=== PATIENT | male | born 1930 | race Caucasian/White ===

== ENCOUNTER 2017-04-27 12:12 | Emergency (ER) | payer MEDICARE, OTHER ==
[~2017-04-27] VITALS: Ht 175.3 cm; Wt 75.0 kg
[2017-04-27 12:20] VITALS: BP 108/68; PULSE 68; RESP 16; TEMP 98.6; O2SAT 97
[2017-04-27 12:40] VITALS: BP 161/75; PULSE 87; RESP 15; O2SAT 99
[2017-04-27] MEDS ORDERED: SODIUM CHLORIDE 0.9% FLUSH 10 ML FLUSH IVF PRN (13:00)
--- NOTE | 2017-04-27 13:18 | RADRPT ---
EXAM DATE/TIME: 04/27/2017 13:09 [facility] COMPARISON: No previous studies available for comparison. INDICATIONS : Possible fall. Found on the ground. RADIATION DOSE: 37.94 CTDIvol (mGy) MEDICAL HISTORY : Dementia. SURGICAL HISTORY : None. ENCOUNTER: Initial ACUITY: 1 day PAIN SCALE: Non-responsive LOCATION: cranial TECHNIQUE: Multiple contiguous axial images were obtained of the head. Using automated exposure control and adj ustment of the mA and/or kV according to patient size, radiation dose was kept as low as reasonably a chievable to obtain optimal diagnostic quality images. DICOM format image data is available electro nically for review and comparison. FINDINGS: CEREBRUM: The ventricles are normal for age. No evidence of midline shift, mass lesion, hemorrhage or acute in farction. No extra-axial fluid collections are seen. POSTERIOR FOSSA: The cerebellum and brainstem are intact. The 4th ventricle is midline. The cerebellopontine angle i s unremarkable. EXTRACRANIAL: The visualized portion of the orbits is intact. SKULL: The calvaria is intact. No evidence of skull fracture. There is soft tissue swelling over the high r ight parietal and occipital bones. CONCLUSION: Soft tissue swelling over the right parietal and occipital bone with no evidence of h emorrhage or mass effect. Mike Turpin MD on April 27, 2017 at 13:14 Board Certified Radiologist. This report was verified electronically.
--- NOTE | 2017-04-27 13:42 | RADRPT ---
EXAM DATE/TIME: 04/27/2017 13:09 [facility] COMPARISON: No previous studies available for comparison. INDICATIONS : Possible fall. Found on the ground. RADIATION DOSE: 20.84 CTDIvol (mGy) MEDICAL HISTORY : Dementia. SURGICAL HISTORY : None. ENCOUNTER: Initial ACUITY: 1 day PAIN SCALE: Non-responsive LOCATION: neck TECHNIQUE: Volumetric scanning of the cervical spine was performed. Multiplanar reconstructions i n the sagittal, coronal and oblique axial planes were performed. Using automated exposure control a nd adjustment of the mA and/or kV according to patient size, radiation dose was kept as low as reason ably achievable to obtain optimal diagnostic quality images. DICOM format image data is available e lectronically for review and comparison. FINDINGS: The sagittal reconstructions demonstrate normal alignment and normal prevertebral soft tissues. The d ens is intact and there is a normal atlantoaxial relationship. Degenerative disc changes are present at the C3-4, C4-5, C5-6 and C6-7 levels with disc space narrowing and hypertrophic change. Degenerati ve changes are noted involving the right atlantal axial joint. There is joint space loss, sclerosis a nd spurring. There is mild osteopenia. The axial images demonstrate that the vertebral bodies and posterior elements are intact. The soft ti ssues are within normal limits. There is no evidence of acute fracture or malalignment. Hypertrophic degenerative changes noted involving the facet joints. There are disc osteophyte complexes at the C4- 5, C5-6 and C6-7 levels with mass effect on the anterior thecal sac. CONCLUSION: Negative trauma CT. Mike Turpin MD on April 27, 2017 at 13:36 Board Certified Radiologist. This report was verified electronically.
[2017-04-27 13:49] LABS: BASOPHIL % 0.1 % (0.0-2.0); HEMATOCRIT 40.1 % (39.0-51.0); HEMOGLOBIN 13.8 GM/DL (13.0-17.0); LYMPH % 5.9 % (9.0-44.0); LYMPHOCYTE # 1.3 TH/MM3 (1.0-4.8); MEAN CELL VOLUME 86.3 FL (80.0-100.0); MEAN CORPUSCULAR HEMOGLOBIN 29.7 PG (27.0-34.0); MEAN CORPUSCULAR HGB CONC 34.5 % (32.0-36.0); MEAN PLATELET VOLUME 7.6 FL (7.0-11.0); MONO % 11.4 % (0.0-8.0); MONOCYTE # 2.5 TH/MM3 (0-0.9); NEUT % 82.6 % (16.0-70.0); PLATELET COUNT 266 TH/MM3 (150-450); RED BLOOD COUNT 4.65 MIL/MM3 (4.50-5.90); RED CELL DISTRIBUTION WIDTH 14.7 % (11.6-17.2); WHITE BLOOD COUNT 21.8 TH/MM3 (4.0-11.0)
[2017-04-27 13:56] LABS: BILIRUBIN, URINE NEG (NEG); BLOOD, URINE LARGE (NEG); GLUCOSE,URINE NEG (NEG); KETONE, URINE NEG (NEG); NITRITE,URINE NEG (NEG); URINE COLOR YELLOW (YELLW/STRAW); URINE LEUKOCYTE ESTERASE LARGE (NEG); WHITE BLOOD CELL CLUMPS MANY
[2017-04-27 13:59] LABS: BICARBONATE 24.9 MEQ/L (21.0-32.0); CALCIUM 8.5 MG/DL (8.5-10.1); CREATININE 1.38 MG/DL (0.60-1.30)
--- NOTE | 2017-04-27 14:16 | PD ---
HPI Chief Complaint: Fall Time Seen by Provider: 12:41 Travel History International Travel<30 days: No Contact w/Intl Traveler<30days: No Traveled to known affect area: No History of Present Illness HPI The patient is 86 years old and arrives to the ER due to fall at longterm, [facility]. Patient was last seen normal about 3 hours prior to ER arrival and then about an hour prior to ED evaluation was found on the floor and more confused than normal. The patient suffer with dementia thereby limiting history somewhat. He denies pain in the ER. EMS notes a deformity of the proximal left humerus. EMS also notes a contusion upon the occipital scalp raising concern for fall however nothing was witnessed. PFSH Social History Tobacco Use: No Allergies-Medications (Allergen,Severity, Reaction): Coded Allergies: No Known Allergies (Unverified , 04/27/17) Review of Systems Except as stated in HPI: all other systems reviewed are Neg General / Constitutional: No: Fever Physical Exam Narrative GENERAL: 86-year-old male pleasant well-nourished well-developed, interactive though mild dementia SKIN: Focused skin assessment warm/dry. HEAD: Atraumatic. Normocephalic. EYES: Pupils equal and round. No scleral icterus. No injection or drainage. ENT: No nasal bleeding or discharge. Mucous membranes pink and moist. NECK: Trachea midline. No JVD. CARDIOVASCULAR: Regular rate and rhythm. No murmur appreciated. RESPIRATORY: No accessory muscle use. Clear to auscultation. Breath sounds equal bilaterally. GASTROINTESTINAL: Abdomen soft, non-tender, nondistended. Hepatic and splenic margins not palpable. MUSCULOSKELETAL: Left upper extremities and a sling. There is 2+ radial artery pulses bilaterally. There is ecchymosis about the left proximal humerus. NEUROLOGICAL: Cranial nerves III through XII are symmetric. The patient answers questions however memory is impaired. Motor function is normal. PSYCHIATRIC: Appropriate mood and affect; insight and judgment normal. Data Data Last Documented VS Vital Signs Date Time Temp Pulse Resp B/P (MAP) Pulse Ox O2 Delivery O2 Flow Rate FiO2 04/27/17 12:40 87 15 161/75 (103) 99 Room Air 04/27/17 12:20 98.6 Vital signs reviewed Orders Orders Electrocardiogram (04/27/17 12:49) Basic Metabolic Panel (Bmp) (04/27/17 12:49) Complete Blood Count With Diff (1/9/18 12:49) Urinalysis - C+S If Indicated (04/27/17 12:49) Ct Brain W/O Iv Contrast(Rout) (04/27/17 12:49) Ct Cerv Spine W/O Contrast (04/27/17 12:49) Ecg Monitoring (04/27/17 12:49) Iv Access Insert/Monitor (04/27/17 12:49) Oximetry (04/27/17 12:49) Sodium Chloride 0.9% Flush (Ns Flush) (04/27/17 13:00) Humerus (Min 2vws) (04/27/17 ) Urine Culture (04/27/17 12:55) Ceftriaxone Inj (Rocephin Inj) (04/27/17 14:45) Labs Laboratory Tests Test 04/27/17 12:55 White Blood Count 21.8 TH/MM3 Red Blood Count 4.65 MIL/MM3 Hemoglobin 13.8 GM/DL Hematocrit 40.1 % Mean Corpuscular Volume 86.3 FL Mean Corpuscular Hemoglobin 29.7 PG Mean Corpuscular Hemoglobin Concent 34.5 % Red Cell Distribution Width 14.7 % Platelet Count 266 TH/MM3 Mean Platelet Volume 7.6 FL Neutrophils (%) (Auto) 82.6 % Lymphocytes (%) (Auto) 5.9 % Monocytes (%) (Auto) 11.4 % Eosinophils (%) (Auto) 0.0 % Basophils (%) (Auto) 0.1 % Neutrophils # (Auto) 18.0 TH/MM3 Lymphocytes # (Auto) 1.3 TH/MM3 Monocytes # (Auto) 2.5 TH/MM3 Eosinophils # (Auto) 0.0 TH/MM3 Basophils # (Auto) 0.0 TH/MM3 CBC Comment AUTO DIFF Differential Comment AUTO DIFF CONFIRMED Urine Color YELLOW Urine Turbidity CLOUDY Urine pH 6.0 Urine Specific Sterrett 1.016 Urine Protein 100 mg/dL Urine Glucose (UA) NEG mg/dL Urine Ketones NEG mg/dL Urine Occult Blood LARGE Urine Nitrite NEG Urine Bilirubin NEG Urine Urobilinogen LESS THAN 2.0 MG/DL Urine Leukocyte Esterase LARGE Urine RBC /hpf Urine WBC /hpf Urine WBC Clumps MANY Microscopic Urinalysis Comment CULTURE INDICATED Blood Urea Nitrogen 29 MG/DL Creatinine 1.38 MG/DL Random Glucose 159 MG/DL Calcium Level 8.5 MG/DL Sodium Level 137 MEQ/L Potassium Level 4.3 MEQ/L Chloride Level 104 MEQ/L Carbon Dioxide Level 24.9 MEQ/L Anion Gap 8 MEQ/L Estimat Glomerular Filtration Rate 49 ML/MIN [facility] Medical Decision Making Medical Screen Exam Complete: Yes Emergency Medical Condition: Yes Medical Record Reviewed: Yes Differential Diagnosis UTI, pneumonia, intracranial hemorrhage Narrative Course CBC & BMP Diagram 04/27/17 12:55 Calcium Level 8.5 Urinalysis shows a UTI Neutrophils are 83% Last [address] 04/27/17 1249 Signed Impressions: Service Date/Time: Thursday, April 27, 2017 13:09 - CONCLUSION: Soft tissue swelling over the right parietal and occipital bone with no evidence of hemorrhage or mass effect. Mike Turpin MD Cervical Spine CT 04/27/17 1249 Signed Impressions: Service Date/Time: Thursday, April 27, 2017 13:09 - CONCLUSION: Negative trauma CT. Mike Turpin MD Patient has a UTI Rocephin IV Cipro prescription Return to return to [facility] Diagnosis Primary Impression: Fall Qualified Codes: W19.XXXA - Unspecified fall, initial encounter Additional Impressions: UTI (urinary tract infection) Qualified Codes: N30.01 - Acute cystitis with hematuria Scalp contusion Qualified Codes: S00.03XA - Contusion of scalp, initial encounter Referrals: Primary Care Physician 2 days Med/Other Pt SpecificInfo: Prescription(s) given Scripts Ciprofloxacin (Cipro) 500 Mg Tab 500 MG PO BID for Infection for 5 Days, #10 TAB 0 Refills Prov: Sachin Brandon MD 04/27/17 Disposition: 01 DISCHARGE HOME Condition: Stable Sachin Brandon MD Apr 27, 2017 14:16
[2017-04-27 14:40] VITALS: BP 148/70; PULSE 70; RESP 15; TEMP 97.8; O2SAT 95; O2SAT 96
[2017-04-27] MEDS ORDERED: CIPR-9 PO (14:40)
[2017-04-27] MEDS ORDERED: cefTRIAXone INJ 1,000 MG in SODIUM CHLORIDE 0.9% INJ 100 ML IV ONE (14:45)
--- NOTE | 2017-04-27 14:47 | RADRPT ---
EXAM DATE/TIME: 04/27/2017 13:49 [facility] COMPARISON: No previous studies available for comparison. INDICATIONS : Left arm pain after fall. MEDICAL HISTORY : Unknown SURGICAL HISTORY : Unknown ENCOUNTER: Initial ACUITY: 1 day PAIN SCORE: Non-responsive. LOCATION: Left humerus FINDINGS: Two view examination of the left humerus demonstrates no evidence of fracture or dislocation. Bony m ineralization is normal. The soft tissue structures are intact. CONCLUSION: Negative trauma study. Mike Turpin MD on April 27, 2017 at 14:44 Board Certified Radiologist. This report was verified electronically.
[2017-04-27 14:49] VITALS: BP 145/70
--- NOTE | 2017-04-28 22:09 | EKG ---
Date Performed: 04/27/2017 Time Performed: 13:55:14 PTAGE: 86 years EKG: Sinus rhythm WITH OCCASIONAL VENTRICULAR PREMATURE COMPLEXES LEFT ANTERIOR FASCICULAR BLOCK ABNORMAL ECG NO PREVIOUS TRACING DOCTOR: Hi Barrera Interpretating Date/Time 04/28/2017 22:09:33
== END 2017-04-27 16:20 | disposition home or self-care (01) ==
LOC: NEPE 12:12
DX: S00.03XA Contusion of scalp, initial encounter (principal); N30.01 Acute cystitis with hematuria; F03.90 Unspecified dementia, unspecified severity, without behavioral disturbance, psychotic disturbance, mood disturbance, and anxiety; R94.31 Abnormal electrocardiogram [ECG] [EKG]; W19.XXXA Unspecified fall, initial encounter; Y92.129 Unspecified place in nursing home as the place of occurrence of the external cause
CPT/HCPCS: 70450; 72125; 73060; 80048; 81001; 85025; 87086; 93005; 96374; 99285; J0696

== ENCOUNTER 2017-05-07 22:10 | Emergency (ER) | payer OTHER, MEDICARE ==
[~2017-05-07] VITALS: Ht 180.3 cm; Wt 73.0 kg
[~2017-05-07 22:10] MED LIST: CIPR-9 PO
[2017-05-07 22:25] VITALS: BP 115/64; PULSE 70; RESP 18; TEMP 98; O2SAT 97
--- NOTE | 2017-05-07 23:08 | PD ---
Physical Exam Time Seen by Provider: 23:07 Data Data Last Documented VS Vital Signs Date Time Temp Pulse Resp B/P (MAP) Pulse Ox O2 Delivery O2 Flow Rate FiO2 05/07/17 22:25 98.0 70 18 115/64 (81) 97 MDM Medical Record Reviewed: Yes Supervised Visit with GIANNI: Yes Narrative Course I was asked by Dr. Mallory to repair laceration on this patient. Please see her note for further details. Procedures Procedure Narrative LACERATION LOCATION: Left medial antecubital space LENGTH: 10 cm NUMBER OF STITCHES/ADAIR: 18 [place] REPAIR: The area of the laceration was prepped with Betadine and sterilely draped. The laceration was infiltrated with 1% lidocaine. The wound was copiously irrigated and explored without evidence of foreign body, tendon injury or neurovascular injury. The wound was closed using staple gun. This was a single layer repair. A sterile dressing was applied. The patient was advised to keep the dressing clean and dry. Patient tolerated the procedure well. Analia Marcos May 07, 2017 23:08
--- NOTE | 2017-05-07 23:48 | RADRPT ---
EXAM DATE/TIME: 05/07/2017 23:27 [facility] COMPARISON: CT BRAIN W/O CONTRAST, April 27, 2017, 13:09. INDICATIONS : Trauma, fall. RADIATION DOSE: 40.83 CTDIvol (mGy) ; Patient motion MEDICAL HISTORY : Non-responsive. SURGICAL HISTORY : Non-responsive. ENCOUNTER: Initial ACUITY: 1 day PAIN SCALE: Non-responsive LOCATION: cranial TECHNIQUE: Multiple contiguous axial images were obtained of the head. Using automated exposure control and adj ustment of the mA and/or kV according to patient size, radiation dose was kept as low as reasonably a chievable to obtain optimal diagnostic quality images. DICOM format image data is available electro nically for review and comparison. FINDINGS: CEREBRUM: Moderate diffuse renal atrophy. Mild periventricular white matter hypodensities. The ventricles are n ormal for degree of atrophy. No evidence of midline shift, mass lesion, hemorrhage or acute infarcti on. No extra-axial fluid collections are seen. POSTERIOR FOSSA: The cerebellum and brainstem are intact. The 4th ventricle is midline. The cerebellopontine angle i s unremarkable. EXTRACRANIAL: The visualized portion of the orbits is intact. SKULL: The calvaria is intact. No evidence of skull fracture. CONCLUSION: 1. Stable senescent changes with without acute intracranial abnormality. Cheko Doyle MD on May 07, 2017 at 23:46 Board Certified Radiologist. This report was verified electronically.
[2017-05-07 23:59] VITALS: BP 135/65; PULSE 65; RESP 18; O2SAT 98
--- NOTE | 2017-05-08 00:07 | RADRPT ---
EXAM DATE/TIME: 05/07/2017 23:40 [facility] COMPARISON: No previous studies available for comparison. INDICATIONS : Left forearm pain from multiple falls MEDICAL HISTORY : None. SURGICAL HISTORY : None. ENCOUNTER: Initial ACUITY: 1 day PAIN SCORE: Non-responsive. LOCATION: Left forearm FINDINGS: Two view examination of the left forearm demonstrates no evidence of fracture or dislocation. Bony m ineralization is normal. Surgical clips are noted in the radial aspect of the elbow. CONCLUSION: 1. No acute fracture or dislocation. Cheko Doyle MD on May 08, 2017 at 0:05 Board Certified Radiologist. This report was verified electronically.
--- NOTE | 2017-05-08 00:09 | RADRPT ---
EXAM DATE/TIME: 05/07/2017 23:33 [facility] COMPARISON: No previous studies available for comparison. INDICATIONS : Left shoulder pain from multiple falls. MEDICAL HISTORY : None. SURGICAL HISTORY : None. ENCOUNTER: Initial ACUITY: 1 day PAIN SCORE: Non-responsive. LOCATION: Left shoulder FINDINGS: Two view examination of the left shoulder demonstrates no evidence of fracture or dislocation. The g lenohumeral and acromioclavicular joints are maintained. Bony mineralization is normal. Visualized l eft lung is clear. CONCLUSION: 1. No acute fracture or dislocation. Cheko Doyle MD on May 08, 2017 at 0:08 Board Certified Radiologist. This report was verified electronically.
[2017-05-08 01:33] VITALS: BP 143/70; PULSE 70; RESP 16; O2SAT 98
[2017-05-08] MEDS ORDERED: CEPH-460 PO (01:50)
--- NOTE | 2017-05-08 01:50 | PD ---
HPI Chief Complaint: Fall Time Seen by Provider: 22:51 Travel History International Travel<30 days: No Contact w/Intl Traveler<30days: No Traveled to known affect area: No History of Present Illness HPI 86yo M with PMH of dementia was brought here from [facility] for evaluation of fall today. Pt denies any LOC and has a large laceration on left arm as well as multiple skin tears that are at different stages. Denies any complaints including chest pain, sob, n/v, abdominal pain, focal weakness or numbness. Pt has left arm swelling and has not been able to move it much for a while. PFSH Past Medical History Medical History: Denies Significant Hx Tetanus Vaccination: Unknown Social History Alcohol Use: No Tobacco Use: Yes (CHEW TOBACCO OCC) Substance Use: No Allergies-Medications (Allergen,Severity, Reaction): Coded Allergies: No Known Allergies (Unverified , 04/27/17) Reported Meds & Prescriptions Reported Meds & Active Scripts Active Keflex (Cephalexin) 500 Mg Cap 500 Mg PO Q12H 7 Days Review of Systems Except as stated in HPI: all other systems reviewed are Neg Physical Exam Narrative GENERAL: 86yo M not in distress. SKIN: Focused skin assessment warm/dry. HEAD: Atraumatic. Normocephalic. EYES: Pupils equal and round. No scleral icterus. No injection or drainage. ENT: No nasal bleeding or discharge. Mucous membranes pink and moist. NECK: Trachea midline. No JVD. CARDIOVASCULAR: Regular rate and rhythm. No murmur appreciated. RESPIRATORY: No accessory muscle use. Clear to auscultation. Breath sounds equal bilaterally. GASTROINTESTINAL: Abdomen soft, non-tender, nondistended. MUSCULOSKELETAL: LUE: +Edema in left arm with large laceration in left medial antecubital space. Unknown if this was from today since it is not actively bleeding. Distal pulses intact. NEUROLOGICAL: Awake and alert. No obvious cranial nerve deficits. Motor grossly within normal limits. Normal speech. AAOx2. Moves all other extremity except LUE. Sensation intact. Data Data Last Documented VS Vital Signs Date Time Temp Pulse Resp B/P (MAP) Pulse Ox O2 Delivery O2 Flow Rate FiO2 05/08/17 07:10 64 18 109/68 (82) 99 Room Air 05/07/17 22:25 98.0 Orders Orders Shoulder, Limited(2vws) (05/07/17 ) Forearm (2vws) (05/07/17 ) Ct Brain W/O Iv Contrast(Rout) (05/07/17 ) Ed Discharge Order (05/08/17 01:50) Cephalexin (Keflex) (05/08/17 02:15) [facility] Medical Decision Making Medical Screen Exam Complete: Yes Emergency Medical Condition: Yes Differential Diagnosis Fracture vs. contusion vs. laceration vs. ICH Narrative Course 86yo M brought in by [facility] from [facility] for evaluation of fall. Pt denies any complaints. Vital signs normal. CT brain negative. Xray left forearm negative. Xray left shoulder negative. Pt's laceration was repaired with aminah after thoroughly irrigating it. Do not know how old this was so will cover with antibiotics. Pt does not appear to be in distress, has no complaints and wants to go back. Pt given first dose of keflex here. Diagnosis Primary Impression: Laceration of arm Qualified Codes: S41.112A - Laceration without foreign body of left upper arm , initial encounter Patient Instructions: General Instructions Departure Forms: Tests/Procedures Additional Instructions: Please remove aminah in 10 days. Please return to the ED if any signs of infection. Please take antibiotics as instructed. Med/Other Pt SpecificInfo: Prescription(s) given Scripts Cephalexin (Keflex) 500 Mg Cap 500 MG PO Q12H for Infection for 7 Days, #14 CAP 0 Refills Prov: Idalia Mallory DO 05/08/17 Disposition: 01 DISCHARGE HOME Condition: Stable Idalia Mallory DO May 08, 2017 01:50
[2017-05-08] MEDS ORDERED: CEPHALEXIN MONOHYDRATE 500 MG CAP PO ONE (02:15)
[2017-05-08 05:25] VITALS: BP 140/70; PULSE 60; RESP 16; O2SAT 98
[2017-05-08 07:10] VITALS: BP 109/68; PULSE 64; RESP 18; O2SAT 99
== END 2017-05-08 10:30 | disposition home or self-care (01) ==
LOC: NEPE 22:10
DX: S41.112A Laceration without foreign body of left upper arm, initial encounter (principal); R60.9 Edema, unspecified; W01.0XXA Fall on same level from slipping, tripping and stumbling without subsequent striking against object, initial encounter; Y92.129 Unspecified place in nursing home as the place of occurrence of the external cause; Z72.0 Tobacco use
CPT/HCPCS: 12004; 70450; 73030; 73090; 99285

== ENCOUNTER 2017-09-09 14:19 | Emergency (ER) | payer OTHER, MEDICARE ==
[~2017-09-09] VITALS: Ht 170.2 cm; Wt 75.0 kg
[~2017-09-09 14:19] MED LIST changes: +CEPH-460 PO; -CIPR-9 PO
[2017-09-09 14:59] VITALS: BP 161/67; PULSE 58; RESP 17; TEMP 98.4; O2SAT 98
--- NOTE | 2017-09-09 15:16 | PD ---
HPI Chief Complaint: Fall Time Seen by Provider: 14:40 Travel History International Travel<30 days: No Contact w/Intl Traveler<30days: No Traveled to known affect area: No History of Present Illness HPI Patient is a 86-year-old male presents emergency department for evaluation of trip and fall. Patient has history of dementia and apparently left upper extremity weakness from unknown etiology. Patient pleasantly confused, does have a history of dementia somewhat limiting history. He states that he lost the use of the left upper extremity after an accident was told by physician able to come back but "the physician was obviously wrong" according to him. The patient is oriented to self only, certainly is rambling and difficult to keep on subject. He denies any complaints denies any chest pain shortness breath abdominal pain nausea vomiting diarrhea headache neck pain back pain or extremity pain PFSH Past Medical History Dementia: Yes Diminished Hearing: Yes Medical other: Yes (PROSTATE) Influenza Vaccination: Yes Social History Alcohol Use: No Tobacco Use: Yes (CHEW TOBACCO OCC) Substance Use: No Allergies-Medications (Allergen,Severity, Reaction): Coded Allergies: No Known Allergies (Unverified , 04/27/17) Reported Meds & Prescriptions Reported Meds & Active Scripts Active Keflex (Cephalexin) 500 Mg Cap 500 Mg PO Q12H 7 Days Review of Systems Except as stated in HPI: all other systems reviewed are Neg Physical Exam Narrative GENERAL: Well-developed well-nourished no obvious distress SKIN: Focused skin assessment warm/dry. HEAD: No santiago signs no raccoons eyes, but 4 cm hematoma to the left frontal area.. Normocephalic. EYES: Pupils equal and round. No scleral icterus. No injection or drainage. ENT: No nasal bleeding or discharge. Mucous membranes pink and moist. NECK: Trachea midline. No JVD. CARDIOVASCULAR: Regular rate and rhythm. No murmur appreciated. RESPIRATORY: No accessory muscle use. Clear to auscultation. Breath sounds equal bilaterally. GASTROINTESTINAL: Abdomen soft, non-tender, nondistended. Hepatic and splenic margins not palpable. MUSCULOSKELETAL: No obvious deformities. No clubbing. No cyanosis. No edema. NEUROLOGICAL: Awake and alert. Oriented to self only. 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 Speech normal. PSYCHIATRIC: Appropriate mood and affect; insight and judgment normal. Data Data Last Documented VS Vital Signs Date Time Temp Pulse Resp B/P (MAP) Pulse Ox O2 Delivery O2 Flow Rate FiO2 09/09/17 17:47 62 17 155/64 (94) 100 09/09/17 15:02 Room Air 09/09/17 14:[address] Brain W/O Iv Contrast(Rout) (09/09/17 ) Ct Cerv Spine W/O Contrast (09/09/17 ) Remove Cervical Collar (09/09/17 16:41) Ed Discharge Order (09/09/17 16:41) MDM Medical Decision Making Medical Screen Exam Complete: Yes Emergency Medical Condition: Yes Differential Diagnosis Fall, closed head injury, syncope unlikely, extremity injury unlikely, neck injury per Narrative Course Patient room to the emergency department, he appears well in obvious distress, his neurologic deficit the left upper extremity was previously documented by Dr. Mallory in April. This certainly not an acute finding. CT head and C-spine were negative, c-collar was removed. Transportation was arranged home. There is no indication further workup Diagnosis Primary Impression: Fall Additional Impression: Closed head injury Patient Instructions: Fall Prevention (DC), General Instructions Disposition: 03 DISCHARGE TO SNF Condition: Stable George Hubbard MD September 09, 2017 15:16
--- NOTE | 2017-09-09 16:02 | RADRPT ---
EXAM DATE: 09/09/2017 3:46 PM EDT AGE/SEX: 86 years / Male INDICATIONS: Fall, bump on left side of head CLINICAL DATA: This is the patient's initial encounter. Patient reports that signs and symptoms have been present for 1 day and indicates a pain score of 0/10. MEDICAL/SURGICAL HISTORY: . Dementia None. RADIATION DOSE: 66.34 CTDI (mGy) COMPARISON: [facility] [place], CT BRAIN W/O CONTRAST, 05/07/2017. . TECHNIQUE: CT of the head without contrast. Using automated exposure control and adjustment of the mA and/or kV according to patient size, radiation dose was kept as low as reasonably achievable to ob tain optimal diagnostic quality images. FINDINGS: Cerebrum: The ventricles are normal for age. No evidence of midline shift, mass lesion, hemorrhage or acute infarction. No extraaxial fluid collections are seen. Posterior Fossa: The cerebellum and brainstem are intact. The 4th ventricle is midline. The cerebe llopontine angle is unremarkable. Extracranial: The visualized portion of the orbits is intact. Skull: The calvaria is intact. No evidence of skull fracture. CONCLUSION: 1. No acute intracranial abnormality. Cortical volume loss. Left frontal scalp hematoma. Electronically signed by: Dennis Garcia MD 09/09/2017 4:00 PM EDT
--- NOTE | 2017-09-09 16:09 | RADRPT ---
EXAM DATE: 09/09/2017 4:00 PM EDT AGE/SEX: 86 years / Male INDICATIONS: Fall, bump on left side of head CLINICAL DATA: This is the patient's initial encounter. Patient reports that signs and symptoms have been present for 1 day and indicates a pain score of 1/10. MEDICAL/SURGICAL HISTORY: . Dementia None. RADIATION DOSE: 21.03 CTDI (mGy) COMPARISON: [facility] – [place] CERVICAL SPINE W/O CONTRAST, 04/27/2017. . TECHNIQUE: Contiguous axial images were obtained using helical multirow detector technique. The vol umetric data was post-processed with multiplanar reconstruction in oblique axial, sagittal, and coron al planes. Using automated exposure control and adjustment of the mA and/or kV according to patient s ize, radiation dose was kept as low as reasonably achievable to obtain optimal diagnostic quality irma ges. FINDINGS: ALIGNMENT: Vertebral bodies are satisfactorily aligned without evidence of listhesis. FACET AND OSSEOUS STRUCTURES: Vertebral body height is well-maintained. There is no evidence of comp ression fracture. 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 The right lateral mass articulations de monstrate joint space narrowing, subchondral sclerosis, subcortical cyst formation and marginal spurr ing. The left lateral masses are relatively unremarkable. The odontoid demonstrates subcortical cyst along its right side as well as significant cortical sclerosis. C2 is otherwise intact without eviden ce of fracture. Moderate to severe facet arthropathy is identified. Advanced arthropathic changes with joint space na rrowing, subchondral sclerosis, subcortical erosions and marginal spurring is noted on the right at C 2-3 and C3-4 and on the left at C4-5 and C5-6. INTERVERTEBRAL DISC SPACES: Moderate to severe degenerative disc changes are again noted. C2-3: mild disc space tear without evidence of disc herniation or spinal stenosis. There is mild to m oderate right foraminal encroachment from marginal spurring off the facet joint. C3-4: Moderate degenerative disc disease with disc space narrowing and marginal spondylosis. There is no evidence of significant epidural effacement or spinal stenosis or foraminal encroachment. C4-5 moderate degenerative disc disease with disc space narrowing and mild marginal spurring. There i s no evidence of foraminal encroachment or spinal stenosis. C5-6: Advanced degenerative disc disease with marked disc space narrowing, endplate sclerosis and mar ginal spurring. There is a prominent posterior disc osteophyte complex with anterior epidural effacem ent. Significant foraminal encroachment is seen bilaterally. C6-7: Moderate degenerative disc disease with disc space narrowing and marginal spondylosis. There is no evidence of significant foraminal encroachment or spinal stenosis. NEUROLOGIC STRUCTURES: No evidence of significant spinal cord compression. CONCLUSION: 1. 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 2. No evidence of acute bony or soft tissue injury. Electronically signed by: Kamran Connor MD 09/09/2017 4:08 PM EDT
[2017-09-09 17:47] VITALS: BP 155/64
== END 2017-09-09 17:49 ==
LOC: NEPD 14:19
DX: S00.83XA Contusion of other part of head, initial encounter (principal); F03.90 Unspecified dementia, unspecified severity, without behavioral disturbance, psychotic disturbance, mood disturbance, and anxiety; F17.220 Nicotine dependence, chewing tobacco, uncomplicated; W01.0XXA Fall on same level from slipping, tripping and stumbling without subsequent striking against object, initial encounter
CPT/HCPCS: 70450; 72125; 99283